=== PATIENT | female | born 1980 | race Two or more races ===

== ENCOUNTER 2017-02-17 20:27 | Emergency (ER) | payer SELFPAY ==
[2017-02-18] MEDS ORDERED: OXYCODONE-ACETAMINOPHEN 5-325 MG TABLET PO ONE (00:40)
[2017-02-18] MEDS ORDERED: CYCLOBENZAPRINE HCL 10 MG TABLET PO ONE (00:40)
--- NOTE | 2017-02-18 00:42 | ER Document Report ---
HPI - HPI Patient complains to provider of: low back pain Onset: Yesterday Quality of pain: Sharp Pain Level: 5 Context: Patient presents complaining of low back pain that started yesterday. Patient denies any injury. Patient denies any urinary retention or incontinence. Patient states pain radiates to right hip area. Patient without any fever or history of IV drug use. Associated Symptoms: Other - Low back pain. denies: Fever Exacerbated by: Movement Relieved by: Denies Similar symptoms previously: Yes Recently seen / treated by doctor: No - ROS ROS below otherwise negative: Yes Systems Reviewed and Negative: Yes All other systems reviewed and negative - CONSTITUTIONAL Constitutional: DENIES: Fever, Chills - NEURO Neurology: DENIES: Headache, Weakness - GASTROINTESTINAL Gastrointestinal: DENIES: Abdominal Pain, Nausea, Patient vomiting - URINARY Urinary: DENIES: Dysuria, Urgency - MUSCULOSKELETAL Musculoskeletal: REPORTS: Extremity pain - Hip, Back Pain. DENIES: Neck Pain - DERM Skin Color: Normal Skin Problems: None Past Medical History - General Information source: Patient - Social History Smoking Status: Never Smoker Frequency of alcohol use: None Drug Abuse: None Occupation: none Lives with: Family Family History: Reviewed & Not Pertinent Patient has suicidal ideation: No Patient has homicidal ideation: No - Medical History Medical History: Negative Renal/ Medical History: Denies: Hx Peritoneal Dialysis Past Surgical History: Reports: Hx Section Vertical Provider Document - CONSTITUTIONAL Agree With Documented VS: Yes Exam Limitations: No Limitations General Appearance: WD/WN, No Apparent Distress Notes: PHYSICAL EXAMINATION: GENERAL: Well-appearing, well-nourished and in no acute distress. HEAD: Atraumatic, normocephalic. EYES: sclera clear, anicteric, conjunctiva are normal. ENT: nares patent, Moist mucous membranes. NECK: Normal range of motion, supple no lymphadenopathy LUNGS: respirations unlabored HEART: Regular rate and rhythm without murmurs EXTREMITIES: Normal range of motion, no pitting or edema. No cyanosis. Gait normal, pt ambulates without difficulty BACK: right lower lumbar paraspinal tenderness, r SI joint tenderness no midline tenderness, no deformities or step-offs. No CVA tenderness. NEUROLOGICAL: Cranial nerves grossly intact. Normal speech, normal gait. No saddle anesthesia. 2+patellar/achilles reflexes PSYCH: Normal mood, normal affect. SKIN: Warm, Dry, normal turgor, no rashes or lesions noted. - INFECTION CONTROL TRAVEL OUTSIDE OF THE [place] 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 - Vital Signs Vital signs: Temp Pulse Resp BP Pulse Ox 98.5 F 62 20 120/70 99 02/17/17 20:53 02/17/17 20:53 02/17/17 20:53 02/17/17 20:53 02/17/17 20:53 Discharge - Discharge Clinical Impression: Low back pain Qualifiers: Chronicity: acute Back pain laterality: right Sciatica presence: with sciatica Sciatica laterality: sciatica of right side Qualified Code(s): M54.41 - Lumbago with sciatica, right side Condition: Stable Disposition: HOME, SELF-CARE Instructions: Ice Packs ([facility]), Oral Narcotic Medication ([facility]), Warm Packs ([facility]) , Low Back Pain ([facility]), Sciatica ([facility]) Additional Instructions: Return immediately for any new or worsening symptoms Followup with your primary care provider, call tomorrow to make a followup appointment Prescriptions: Cyclobenzaprine HCl [Flexeril 10 Mg Tablet] 10 mg PO TID #15 tablet Oxycodone HCl/Acetaminophen [Percocet 5-325 mg Tablet] 1 tab PO ASDIR PRN #15 tablet PRN Reason: Referrals: [facility] [Provider Group] - Follow up in 3-5 days Print Language: [place]
[2017-02-18 01:36] VITALS: BP 107/59
== END 2017-02-18 01:32 | disposition home or self-care (01) ==
LOC: ER 20:27
DX: M54.41 Lumbago with sciatica, right side (principal); M54.5 Low back pain; M25.551 Pain in right hip
CPT/HCPCS: 99283